=== PATIENT | male | born 1955 | race Caucasian/White ===

== ENCOUNTER 2023-08-26 06:08 | Day surgery (SDC) | payer MEDICARE ==
[2023-08-11 11:25] VITALS: BMI 24.3
[2023-08-26] MEDS ORDERED: Famotidine/PF 20 mg/2ml Vial ONE (06:31)
[2023-08-26] MEDS ORDERED: EPINEPHrine 1 MG/ML VIAL ONE (06:40)
[2023-08-26] MEDS ORDERED: Bupivacaine 0.25% HCL 30 ML VIAL ONE (06:40)
[2023-08-26] MEDS ORDERED: Lidocaine 2% PF 5 ML VIAL ONE (07:12)
[2023-08-26] MEDS ORDERED: fentaNYL PF 100 MCG/2 ML SYRINGE ONE ×2 (07:12→09:06)
[2023-08-26] MEDS ORDERED: PROPOFOL 20 ML ONE (07:12)
[2023-08-26] MEDS ORDERED: SUGAMMADEX SODIUM 200 MG/2 ML VIAL ONE (07:13)
[2023-08-26] MEDS ORDERED: Rocuronium Bromide 10 MG/ML (10ML VIAL) ONE (07:13)
[2023-08-26] MEDS ORDERED: Ondansetron PF 4 MG/2 ML Vial ONE (07:13)
[2023-08-26] MEDS ORDERED: Dexamethasone 4 mg/ml Vial ONE (07:13)
[2023-08-26] MEDS ORDERED: Ketorolac Tromethamine 30 MG (1 mL) VIAL ONE (07:13)
[2023-08-26] MEDS ORDERED: CEFAZOLIN 2 GM VIAL ONE (07:24)
[2023-08-26] MEDS ORDERED: Sodium Chloride 0.9% 100 ML ONE (07:25)
[2023-08-26] MEDS ORDERED: fentaNYL 50 mcg/mL 1 mL Vial ONE ×2 (08:23→08:51)
[2023-08-26] MEDS ORDERED: HYDROcodone/Acetaminophen 5/325 mg Tablet ONE (10:15)
== END 2023-08-26 10:55 | disposition home or self-care (01) ==
LOC: SDC 06:08
PROVIDERS: ATTEND Surgery
PROC: 0YUA4JZ Supplement Bilateral Inguinal Region with Synthetic Substitute, Percutaneous Endoscopic Approach (ICD-10-PCS; principal; 2023-08-26)
DX: K40.20 Bilateral inguinal hernia, without obstruction or gangrene, not specified as recurrent (principal); F17.210 Nicotine dependence, cigarettes, uncomplicated; Z88.1 Allergy status to other antibiotic agents
CPT/HCPCS: 49650; 93005; A4314; C1781 ×2; J0171; J3010; 93010; J0665; J1100; J1885; J2001; J2405; J2704; J3490; S0028